=== PATIENT | female | born 1985 ===

== ENCOUNTER 2017-10-28 22:19 | Inpatient (IN) | payer BC ==
[2017-10-28] MEDS ORDERED: Ondansetron 4 MG/2 ML SDV IVPUSH PRN (23:08)
[2017-10-28] MEDS ORDERED: Sodium Chloride 0.9% 10 ML Syringe FLUSH PRN (23:08)
[2017-10-28] MEDS ORDERED: Nalbuphine 20 MG/1 ML Amp IVPUSH PRN (23:08)
[2017-10-28] MEDS ORDERED: Oxytocin/Lactated Ringers 10 UNIT/1,000 ML BAG IV SCH (23:15)
[2017-10-29] MEDS ORDERED: Ondansetron 4 MG/2 ML SDV IVPUSH PRN (01:57)
[2017-10-29] MEDS ORDERED: ePHEDrine 50 MG/ML SDV IVPUSH PRN (01:57)
[2017-10-29] MEDS ORDERED: fentaNYL 100 MCG/2 ML SDV EPIDUR PRN (01:57)
[2017-10-29] MEDS ORDERED: Bupivacaine/fentaNYL/NS 100 ML Bag EPIDUR SCH (02:00)
--- NOTE | 2017-10-29 02:01 | PCM.PREANE ---
Preanesthetic Assessment - Anesthesia/Transfusion/Family Hx Anesthesia History: Prior Anesthesia Without Reaction (only epidurals) Family History of Anesthesia Reaction: No Transfusion History: No Prior Transfusion(s) Intubation History: Unknown - Review of Systems General: No Symptoms Pulmonary: No Symptoms Cardiovascular: No Symptoms (PIH), Lightheadedness Gastrointestinal: No Symptoms Neurological: No Symptoms Other: Reports: None - Physical Assessment NPO Status Date: 10/28/17 NPO Status Time: 18:00 Pulse: 86 O2 Sat by Pulse Oximetry: 99 Respiratory Rate: 18 Blood Pressure: 148/85 Temperature: 37 C Vital Signs: Last Vital Signs Temp 37.0 C 10/28/17 23:08 Pulse 86 10/28/17 23:08 Resp 18 10/28/17 23:08 BP 148/85 H 10/28/17 23:08 Pulse Ox Height: 1.7 m Weight: 71.123 kg ASA Class: 2 Mental Status: Alert & Oriented x3 Airway Class: Mallampati = 2 Dentition: Reports: Normal Dentition (permanent bottom retainer noted), Caries Thyro-Mental Finger Breadths: 3 Mouth Opening Finger Breadths: 3 ROM/Head Extension: Full Lungs: Clear to Auscultation, Normal Respiratory Effort Cardiovascular: Regular Rate, Regular Rhythm - Lab Values: Laboratory Last Values WBC 11.61 K/mm3 (3.98-10.04) H 10/28/17 23:25 RBC 4.21 M/mm3 (3.98-5.22) 10/28/17 23:25 Hgb 12.8 gm/L (11.2-15.7) 10/28/17 23:25 Hct 37.0 % (34.1-44.9) 10/28/17 23:25 MCV 87.9 fl (79.4-94.8) 10/28/17 23:25 MCH 30.4 pg (25.6-32.2) 10/28/17 23:25 MCHC 34.6 g/dl (32.2-35.5) 10/28/17 23:25 RDW Std Deviation 40.9 fL (36.4-46.3) 10/28/17 23:25 Plt Count 202 K/mm3 (182-369) 10/28/17 23:25 MPV 10.1 fl (9.4-12.3) 10/28/17 23:25 Neut % (Auto) 67.2 % (34.0-71.1) 10/28/17 23:25 Lymph % (Auto) 22.0 % (19.3-51.7) 10/28/17 23:25 [place] % (Auto) 9.4 % (4.7-12.5) 10/28/17 23:25 Eos % (Auto) 0.8 (0.7-5.8) 10/28/17 23:25 Baso % (Auto) 0.3 % (0.1-1.2) 10/28/17 23:25 Neut # (Auto) 7.80 K/mm3 (1.56-6.13) H 10/28/17 23:25 Lymph # (Auto) 2.56 K/mm3 (1.18-3.74) 10/28/17 23:25 [place] # (Auto) 1.09 K/mm3 (0.24-0.36) H 10/28/17 23:25 Eos # (Auto) 0.09 K/mm3 (0.04-0.36) 10/28/17 23:25 Baso # (Auto) 0.03 K/mm3 (0.01-0.08) 10/28/17 23:25 BUN 6 mg/dL (7-18) L 10/28/17 23:25 Creatinine 0.6 mg/dL (0.55-1.02) 10/28/17 23:25 Est Cr Clr Drug Dosing 132.11 mL/min 10/28/17 23:25 Estimated GFR (MDRD) > 60 mL/min (>60) 10/28/17 23:25 Uric Acid 3.3 mg/dL (2.6-6.0) 10/28/17 23:25 AST 14 U/L (15-37) L 10/28/17 23:25 ALT 14 U/L (14-59) 10/28/17 23:25 Lactate Dehydrogenase 159 U/L (81-234) 10/28/17 23:25 Urine Color Yellow (Yellow) 10/29/17 01:00 Urine Appearance Clear (Clear) 10/29/17 01:00 Urine pH 6.0 (5.0-8.0) 10/29/17 01:00 Ur Specific [place] 1.015 (1.005-1.030) 10/29/17 01:00 Urine Protein Negative (Negative) 10/29/17 01:00 Urine Glucose (UA) Negative (Negative) 10/29/17 01:00 Urine Ketones 1+ (Negative) H 10/29/17 01:00 Urine Occult Blood Negative (Negative) 10/29/17 01:00 Urine Nitrite Negative (Negative) 10/29/17 01:00 Urine Bilirubin Negative (Negative) 10/29/17 01:00 Urine Urobilinogen 0.2 (0.2-1.0) 10/29/17 01:00 Ur Leukocyte Esterase Negative (Negative) 10/29/17 01:00 Above labs reviewed and noted and within acceptable ranges to proceed with epidural. - Allergies Allergies/Adverse Reactions: Allergies Allergy/AdvReac Type Severity Reaction Status Date / Time ceftriaxone sodium Allergy Difficulty Verified 10/27/14 02:32 [From Rocephin] Breathing gluten Allergy Abdominal Verified 10/29/17 01:32 Pain venom-honey bee Allergy Difficulty Verified 10/27/14 02:32 [bee venom (honey bee)] Breathing - Anesthesia Plan Pre-Op Medication Ordered: None - Acknowledgements Anesthesia Type Planned: Epidural Pt an Appropriate Candidate for the Planned Anesthesia: Yes Alternatives and Risks of Anesthesia Discussed w Pt/Guardian: Yes Pt/Guardian Understands and Agrees with Anesthesia Plan: Yes PreAnesthesia Questionnaire - Past Health History Medical/Surgical History: Denies Medical/Surgical History HEENT History: Reports: Impaired Vision Other HEENT History: wears contacts 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: Hematologic History: Reports: Anemia Other Hematologic History: induced - SUBSTANCE USE Smoking Status *Q: Never Smoker Second Hand Smoke Exposure: No Days Per Week of Alcohol Use: 0 Recreational Drug Use History: No - HOME MEDS Home Medications: Home Meds EPINEPHrine [Epipen 2-Kwasi] 0.3 mg IM ASDIRECTED PRN 10/27/14 [History] PNV95/Ferrous Fumarate/FA [ Tablet] 1 each PO DAILY 10/27/14 [History] Ferrous Sulfate [Slow Fe] 1 tab PO DAILY 10/29/17 [History] - CURRENT (IN HOUSE) MEDS Current Meds: Current Medications Ephedrine Sulfate (Ephedrine Sulfate) 5 mg IVPUSH ASDIRECTED PRN PRN Reason: Hypotension Fentanyl/Bupivacaine HCl (Fentanyl/Bupivacaine/Ns 2 Mcg-0.125% 100 Ml) 100 ml EPIDUR ASDIRECTED MARCEL Lactated Ringer's (Ringers, Lactated) 1,000 mls @ 100 mls/hr IV ASDIRECTED MARCEL Oxytocin/Lactated Ringer's (Pitocin In Lr 10 Units/1,000 Ml) 10 unit in 1,000 mls @ 500 mls/hr IV ASDIRECTED MARCEL Nalbuphine HCl (Nubain) 10 mg IVPUSH Q2H PRN PRN Reason: Pain (moderate 4-6) Ondansetron HCl (Zofran) 4 mg IVPUSH Q4H PRN PRN Reason: Nausea/Vomiting Sodium Chloride (Saline Flush) 10 ml FLUSH ASDIRECTED PRN PRN Reason: Keep Vein Open
[2017-10-29] MEDS: Lactated Ringers 1,000 ML IV SCH ×3 (02:38→07:34)
[2017-10-29] MEDS ORDERED: Bupivacaine 0.25% 10 ML SDV ONE (03:00)
--- NOTE | 2017-10-29 05:54 | PCM.LDHP ---
L&D History of Present Illness - General Date of Service: 10/29/17 Admit Problem/Dx: Patient Status Order with Admit Dx/Problem 10/28/17 23:08 Patient Status [ADT] Routine Admission Diagnosis/Problem Admission Diagnosis/Problem Normal labor 10/29/17 05:53 39 2/7 week IUP in active labor with cervical change. 10/29/17 06:26 Source of Information: Patient History Limitations: Reports: No Limitations - History of Present Illness Introduction:: History present illness: Prashant is a 32-year-old 4 para 3003 white female who is admitted to labor and delivery on 10/29/2017 in active labor. She did change from 2 cm in clinic to 5 cm with bulging bag of morrison. TELLO is 2017 as determined by a certain last missed period starting 01/27/2017 and supported by at least 1 ultrasound done 04/12/2017. She started labor at approximately 2300 hrs. on 10/28/2017 continued to progress steadily. Upon arrival in labor and delivery her blood pressures were borderline mildly increased. Preeclampsia labs were performed and were negative. She maintained high normal blood pressures throughout the labor and these decreased somewhat after epidural. Epidural was placed for laboring analgesia. 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 Patient's first visit was at 10-5/7 weeks gestational age on 04/12/2017. She had regular care throughout the . Her weight gain was from a pregravid weight of 127.4 pounds to a weight of 154 pounds for a 27 pound weight gain. Her vital signs are stable throughout the course. Last visit in clinic her blood pressure 138/83-high normal. The patient had an abnormal glucose tolerance test. Her three-hour gtt. however was within normal limits. She had a group B strep-negative test on 10/01/2017. She is MTHFR dictation positive. Also noted to have a vitamin D deficiency. She has taken vitamins throughout the course and has taken extra methyl folate 400 g per day. Allergic to bee stings and therefore carries an EpiPen. Her previous deliveries have included the followin. Female born 01/22/2007 at term, 7 lbs. 7 oz., , child's name is Louis 2. Male born 10/06/2009 at term, 7 lbs. 6 oz., , child's name is Arely 3. Male infant born 06[birth year]02/2012 at term, 7 lbs. 8 oz., , child's name is Sary laboratory testing shows blood to b B+, negative antibody screen. First laboratory testing showed a hemoglobin of 14.3 g/dL. Platelets were 248,000. She is rubella immune. RPR is nonreactive. Urine culture was negative. Hepatitis B surface antigen and HIV assays were both negative. Second trimester testing showed a hemoglobin of 10.9 g/dL. Platelets were 186,000. One- hour GTT was 154. Three-hour glucose tolerance test was normal with values fasting at 87, 1 hour at 141, 2 hour at 111, 3 hour at 86. Allergies: 1. Rocephin which causes shortness of breath 2. Bee stings causes anaphylaxis Medications: 1. vitamins daily 2. Methyl folate 400 g daily 3. EpiPen when necessary Past medical history: 1. 3 2. Allergies to bee stings Past surgical history: Unremarkable Family history; patient has 2 sons alive and well, 1 daughter alive and well. One sister age 34 alive with some undiagnosed health problems question of uterine bleeding abnormality. One brother age 36 alive and well. Mother age 57 alive and well. Father age 59 alive with hyperlipidemia. Maternal grandmother at age 89 with age-related problems. Maternal grandfather at age 57 uncertain cause but did have diabetes. Paternal grandmother living at age 87, healthy. Paternal grandfather around age 61 from an OR. No bleeding, blood clotting, anesthesia problems noted in the family. 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 She does not use any significant amounts of alcohol, drugs or tobacco. Review of systems: In general patient is a well-developed well-nourished pleasant female in moderate distress secondary to contract Skin is negative Cardiovascular-no chest pain or exercise intolerance Respiratory-no shortness of breath or infectious symptoms Breasts-changes associated with . Patient plans to breast-feed GI-negative -changes associated with with increased fundal height Musculoskeletal-negative Neurological-negative Physical exam: In general patient is a well-developed pleasant female who is alert and oriented 3. Last clinic blood pressure was 138/83, weight 154.4, heart rate 141. Pre weight was 127.4 pounds. Height is 5 feet 7. Body mass index pre was 19.1. Skin Is warm and dry without lesions HEENT, neck and back within normal limits Lungs are clear with good breath sounds in all lung herrera. Cardiovascular exam shows regular rate and rhythm without murmurs. Breasts not evaluated having been evaluated visit and found to be normal Abdomen is protuberant with fundal height consistent with term baby in vertex presentation Extremities and neurological exam within normal limits Pain Score: 7 - Related Data Allergies/Adverse Reactions: Allergies Allergy/AdvReac Type Severity Reaction Status Date / Time ceftriaxone sodium Allergy Difficulty Verified 10/27/14 02:32 [From Rocephin] Breathing gluten Allergy Abdominal Verified 10/29/17 01:32 Pain venom-honey bee Allergy Difficulty Verified 10/27/14 02:32 [bee venom (honey bee)] Breathing Home Medications: Home Meds EPINEPHrine [Epipen 2-Kwasi] 0.3 mg IM ASDIRECTED PRN 10/27/14 [History] PNV95/Ferrous Fumarate/FA [ Tablet] 1 each PO DAILY 10/27/14 [History] Ferrous Sulfate [Slow Fe] 1 tab PO DAILY 10/29/17 [History] Past Medical History - Past Health History Medical/Surgical History: Denies Medical/Surgical History HEENT History: Reports: Impaired Vision Other HEENT History: wears contacts 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: Hematologic History: Reports: Anemia Other Hematologic History: induced Social & Family History - Family History Family Medical History: Noncontributory - Tobacco Use Smoking Status *Q: Never Smoker Second Hand Smoke Exposure: No - Alcohol Use Days Per Week of Alcohol Use: 0 - Recreational Drug Use Recreational Drug Use: No H&P Review of Systems - Review of Systems: Review Of Systems: See Below L&D Exam - Exam Exam: See Below - Vital Signs Vital Signs: Last Vital Signs Temp 37 C 10/29/17 03:15 Pulse 86 10/29/17 03:15 Resp 18 10/29/17 03:15 BP 148/85 H 10/29/17 03:15 Pulse Ox 99 10/29/17 03:15 Weight: 71.123 kg - Patient Data Lab Results Last 24 hrs: Laboratory Results - last 24 hr 10/28/17 10/28/17 10/29/17 Range/Units 23:25 23:25 01:00 WBC 11.61 H (3.98-10.04) K/mm3 RBC 4.21 (3.98-5.22) M/mm3 Hgb 12.8 (11.2-15.7) gm/L Hct 37.0 (34.1-44.9) % MCV 87.9 (79.4-94.8) fl MCH 30.4 (25.6-32.2) pg MCHC 34.6 (32.2-35.5) g/dl RDW Std Deviation 40.9 (36.4-46.3) fL Plt Count 202 (182-369) K/mm3 MPV 10.1 (9.4-12.3) fl Neut % (Auto) 67.2 (34.0-71.1) % Lymph % (Auto) 22.0 (19.3-51.7) % [place] % (Auto) 9.4 (4.7-12.5) % Eos % (Auto) 0.8 (0.7-5.8) Baso % (Auto) 0.3 (0.1-1.2) % Neut # (Auto) 7.80 H (1.56-6.13) K/mm3 Lymph # (Auto) 2.56 (1.18-3.74) K/mm3 [place] # (Auto) 1.09 H (0.24-0.36) K/mm3 Eos # (Auto) 0.09 (0.04-0.36) K/mm3 Baso # (Auto) 0.03 (0.01-0.08) K/mm3 BUN 6 L (7-18) mg/dL Creatinine 0.6 (0.55-1.02) mg/dL Est Cr Clr Drug Dosing 132.11 mL/min Estimated GFR (MDRD) > 60 (>60) mL/min Uric Acid 3.3 (2.6-6.0) mg/dL AST 14 L (15-37) U/L ALT 14 (14-59) U/L Lactate Dehydrogenase 159 (81-234) U/L Urine Color Yellow (Yellow) Urine Appearance Clear (Clear) Urine pH 6.0 (5.0-8.0) Ur Specific [place] 1.015 (1.005-1.030) Urine Protein Negative (Negative) Urine Glucose (UA) Negative (Negative) Urine Ketones 1+ H (Negative) Urine Occult Blood Negative (Negative) Urine Nitrite Negative (Negative) Urine Bilirubin Negative (Negative) Urine Urobilinogen 0.2 (0.2-1.0) Ur Leukocyte Esterase Negative (Negative) Result Diagrams: 10/28/17 23:25 10/28/17 23:25 Problem List Initiated/Reviewed/Updated: Yes Orders Last 24hrs: Active Orders 24 hr Category Date Time Status Patient Status [ADT] Routine ADT 10/28/17 23:08 Active Activity as Tolerated [RC] PFP Care 10/28/17 23:08 Active Communication Order [RC] ASDIRECTED Care 10/28/17 23:08 Active Notify Provider [RC] ASDIRECTED Care 10/29/17 01:57 Active Notify Provider [RC] PFP Care 10/28/17 23:08 Active Notify Provider [RC] PRN Care 10/28/17 23:08 Active Oxygen Therapy [RC] ASDIRECTED Care 10/29/17 01:56 Active Peripheral IV Care [RC] . DIRECTED Care 10/28/17 23:08 Active Pulse Oximetry [RC] ASDIRECTED Care 10/29/17 01:57 Active Pump Management, Intrathecal [RC] ASDIRECTED Care 10/28/17 23:09 Active Urinary Catheter Assessment [RC] ASDIRECTED Care 10/28/17 23:08 Active Vital Signs [RC] 09,15,21,03 Care 10/28/17 23:08 Active Regular Diet [DIET] Diet 10/28/17 Breakfast Active UA W/O MICROSCOPIC [URIN] Stat Lab 10/29/17 01:00 Ordered Bupivacaine/fentaNYL/NS [fentaNYL/Bupivacaine/NS 2 MCG- Med 10/29/17 02:00 Active 0.125% 100 ML] 100 ml EPIDUR ASDIRECTED Lactated Ringers [Ringers, Lactated] 1,000 ml Med 10/28/17 23:15 Active IV ASDIRECTED Nalbuphine [Nubain] Med 10/28/17 23:08 Active 10 mg IVPUSH Q2H PRN Ondansetron [Zofran] Med 10/29/17 01:57 Active 4 mg IVPUSH ONETIME PRN Ondansetron [Zofran] Med 10/28/17 23:08 Active 4 mg IVPUSH Q4H PRN Oxytocin/Lactated Ringers [Pitocin in LR 10 Units/1,000 Med 10/28/17 23:15 Active ML] 10 unit in 1,000 ml IV ASDIRECTED Sodium Chloride 0.9% [Saline Flush] Med 10/28/17 23:08 Active 10 ml FLUSH ASDIRECTED PRN ePHEDrine [ePHEDrine Sulfate] Med 10/29/17 01:57 Active 5 mg IVPUSH ASDIRECTED PRN fentaNYL [Sublimaze] Med 10/29/17 01:57 Active 100 mcg EPIDUR Q3H PRN Electronic Heart Tones Ext w TOCO [WOMSER] Oth 10/28/17 23:08 Ordered Routine Electronic Heart Tones Internal [WOMSER] Per Unit Oth 10/28/17 23:08 Ordered Routine PIH Panel [OM.PC] Stat Oth 10/28/17 23:08 Ordered Peripheral IV Insertion Adult [OM.PC] Routine Oth 10/28/17 23:08 Ordered Resuscitation Status Routine Resus Stat 10/28/17 23:08 Ordered Medication Orders Ephedrine Sulfate (Ephedrine Sulfate) 5 mg IVPUSH ASDIRECTED PRN PRN Reason: Hypotension Fentanyl (Sublimaze) 100 mcg EPIDUR Q3H PRN PRN Reason: Pain Last Admin: 10/29/17 03:16 Dose: 100 mcg Fentanyl/Bupivacaine HCl (Fentanyl/Bupivacaine/Ns 2 Mcg-0.125% 100 Ml) 100 ml EPIDUR ASDIRECTED MARCEL Last Admin: 10/29/17 03:16 Dose: 100 ml Lactated Ringer's (Ringers, Lactated) 1,000 mls @ 100 mls/hr IV ASDIRECTED MARCEL Last Admin: 10/29/17 02:39 Dose: 100 mls/hr Infusion: 10/29/17 02:39 Dose: 100 mls/hr Admin: 10/29/17 02:38 Dose: 100 mls/hr Oxytocin/Lactated Ringer's (Pitocin In Lr 10 Units/1,000 Ml) 10 unit in 1,000 mls @ 500 mls/hr IV ASDIRECTED MARCEL Nalbuphine HCl (Nubain) 10 mg IVPUSH Q2H PRN PRN Reason: Pain (moderate 4-6) Ondansetron HCl (Zofran) 4 mg IVPUSH Q4H PRN PRN Reason: Nausea/Vomiting Ondansetron HCl (Zofran) 4 mg IVPUSH ONETIME PRN PRN Reason: Nausea/Vomiting Sodium Chloride (Saline Flush) 10 ml FLUSH ASDIRECTED PRN PRN Reason: Keep Vein Open Assessment/Plan Comment:: Assessment: 1. 39-2/7 week intrauterine , active labor 2. Borderline high normal blood pressures with no laboratory evidence of preeclampsia 3. Rubella immune 4. Plans to breast-feed 5. Epidural for labor and analgesia Plan: 1. Anticipate 2. Epidural for pain control 3. Support breast-feeding decision 4. CBC
[2017-10-29] MEDS ORDERED: EPINEPHRINE 0.3 MG/0.3 ML IM PRN (06:47)
--- NOTE | 2017-10-29 06:53 | PCM.SN ---
- Free Text/Narrative Note: Delivery note: Prashant is a 32-year-old 4 now para 4004 white female with an TELLO of 11/03/2017 who arrived in labor and delivery late on the evening of 2017 in active labor. She progressed to 5 cm and then on to complete in a relatively rapid fashion. She had an epidural for labor analgesia. Heart tones were within normal limits. Pressures were initially high normal but preeclampsia labs returned normal. With epidural her blood pressures normalized. She progressed to complete at approximately 0530 hrs. and her membranes revealed a very light meconium-stained amniotic fluid. She pushed with 1 contraction delivered a viable, coughlin, 3570 g (7 pound 13.9 ounce) male infant in a left occiput anterior position, with Apgars of 8 and 9 and a length of 22.5 inches at 0610 hrs. Baby was placed on was abdomen and nose mouth were bulb suctioned. Cord was clamped 2 and then was cut by the baby's father Julian. Cord blood was obtained. Baby was taken to the warmer and evaluated. Pitocin was administered IV to facilitate an increase in uterine tone and use likelihood of bleeding. The placenta delivered at 0612 hrs.in a [place] fashion, appeared intact and complete and was discarded per patient desire. Patient's bleeding was minimal with no more than 100 mL of blood loss. Patient plans to breast-feed. Condition : Good
[2017-10-29] MEDS ORDERED: Lanolin 100% Cream 7 GM Tube TOP PRN (07:33)
[2017-10-29] MEDS ORDERED: Benzocaine/Menthol 20%-0.5% Spray 56 GM Canister TOP PRN (07:33)
[2017-10-29] MEDS ORDERED: Acetaminophen 325 MG Tab PO PRN (07:33)
[2017-10-29] MEDS ORDERED: Docusate Sodium 100 MG Cap PO PRN (07:33)
[2017-10-29] MEDS ORDERED: Witch Hazel Medicated Pads 100/Jar TOP PRN (07:46)
[2017-10-29] MEDS: Ibuprofen 600 MG Tab PO PRN ×4 (08:12→22:04)
[2017-10-29] MEDS ORDERED: Prenatal Multivitamin with Calcium/Folic Acid/Iron Tab PO SCH (09:00)
[2017-10-29] MEDS ORDERED: Ferrous Sulfate 140 MG Tab PO SCH (09:00)
[2017-10-30] MEDS: Ibuprofen 600 MG Tab PO PRN ×4 (03:07→21:05)
[2017-10-30] MEDS ORDERED: Sodium Chloride 0.9% 10 ML Syringe FLUSH PRN (05:29)
[2017-10-30] MEDS ORDERED: Magnesium Sulfate/Water 2 GM in Premix Bag 1 BAG IV ONE ×2 (05:37→05:47)
[2017-10-30] MEDS ORDERED: Magnesium Sulfate/Water 40 GM/1,000 ML BAG IV SCH (05:45)
--- NOTE | 2017-10-30 06:17 | PCM.SN ---
- Free Text/Narrative Note: day one: I was called this a.m. at 0500 hrs. for patient's symptoms of shakiness, feeling unwell. Also some chest heaviness, left arm discomfort. This was acute onset at approximately 4:00 this morning. Nurse had seen the patient and found her reflexes to be increased, patient somewhat anxious. On clinical evaluation patient is somewhat anxious in appearance, concerned about what may be going on The shakiness had resolveby the time I saw her. No shortness of breath or chest pain at that time either. She's been ambulating well, voiding well, has had minimal lochia. No discomforts otherwise noted. Nursing is going well. Clinical evaluation shows blood pressures normalize from the time of delivery and through the night until approximately 4:00 at which time blood pressures 140 /90 and short time later 151/94. O2 sats on room air were 100% at the time of of those evaluations. In general the patient appeared somewhat anxious and concerned but not in any acute distress otherwise. HEENT, neck and back within normal limits Cardiovascular exam showed a rate of approximately 100 but was regular and without significant murmurs Lungs are clear with good breath sounds in all lung herrera. Breasts exam deferred. Abdomen showed positive bowel sounds, soft, nontender, uterus approximately 3 finger breaths below the umbilicus and was nontender. Lower extremities showed no significant edema. Neurological evaluation showed deep tendon reflexes +3/4 with some extra beats of clonus in bilateral lower extremities and +3/4 bilaterally in upper extremities. Laboratory testing shows hemoglobin of 11.6, hematocrit 34.4, white blood count 10.3 and platelets of 173,000. (Platelets down from 202,000) Chemistry profile shows a CO2 of 26. Her sodium is 137 potassium is 4.2. AST is normal at 29 but increased from 14 yesterday. ALTs is normal. Uric acid is increased from 3.3-3.6 which is still within normal limits. Chest x-rayPAs within normal limits. EKG shows no acute ischemia mild repolarization early in the anterior leads, no acute STT wave changes, normal sinus rhythm. Assessment: 1. Postoperative day 1 with relatively rapid onset of chest discomfort/heaviness , questionable shortness of breath, increased anxiety, shakiness and left arm discomfort. Etiology uncertain. Deep tendon reflexes are very brisk with clonus noted in the lower extremities. Must consider preeclampsia symptomatology. Blood pressures are borderline at this time having normalized after delivery. 2. Minimal bleeding, nursing going well and ambulating well. Plan: 1. Monitor closely clinically. We'll do intake and outputs, U4 hour vital signs with deep tendon reflexes 2. Initiate magnesium sulfate with a 4 g bolus of magnesium sulfate over the minutes followed by 2 g per hour maintenance dosage. Medication, risks, benefits , alternatives discussed with patient. She agrees to proceed with therapy. 3. Monitor magnesium levels every 6 hours. We'll maintain a pulse between 4 and 6. 4. Patient to continue breast-feeding.
--- NOTE | 2017-10-30 11:04 | PCM48HPAN ---
Post Anesthesia Note - EVALUATION WITHIN 48HRS OF ANESTHETIC Vital Signs in Normal Range: Yes Patient Participated in Evaluation: Yes Respiratory Function Stable: Yes Airway Patent: Yes Cardiovascular Function Stable: Yes Hydration Status Stable: Yes Pain Control Satisfactory: Yes Nausea and Vomiting Control Satisfactory: Yes Mental Status Recovered: Yes Pulse Rate: 103 Resp Rate: 14 Temperature: 98.1 F Blood Pressure: 149/87
[2017-10-31] MEDS: Ibuprofen 600 MG Tab PO PRN (04:58)
--- NOTE | 2017-10-31 06:49 | PCM.DCSUM1 ---
Discharge Summary - Hospital Course Free Text/Narrative:: Prashant is a 32-year-old 4 now para 4004 white female with an TELLO of 2017 who arrived in labor and delivery late on the evening of 10/28/2017 in active labor. She progressed to 5 cm and then on to complete in a relatively rapid fashion. She had an epidural for labor analgesia. Heart tones were within normal limits. Pressures were initially high normal but preeclampsia labs returned normal. With epidural her blood pressures normalized. She progressed to complete at approximately 0530 hrs. and her membranes revealed a very light meconium-stained amniotic fluid. She pushed with 1 contraction delivered a viable, coughlin, 3570 g (7 pound 13.9 ounce) male in a left occiput anterior position, with Apgars of 8 and 9 and a length of 22.5 inches at 0610 hrs. Baby was placed on was abdomen and nose mouth were bulb suctioned. Cord was clamped 2 and then was cut by the baby's father Julian. Cord blood was obtained. Baby was taken to the warmer and evaluated. Pitocin was administered IV to facilitate an increase in uterine tone and use likelihood of bleeding. The placenta delivered at 0612 hrs.in a Coats fashion, appeared intact and complete and was discarded per patient desire. Patient's bleeding was minimal with no more than 100 mL of blood loss. Patient plans to breast-feed. - Discharge Data Discharge Date: 10/31/17 Discharge Disposition: Home, Self-Care 01 Condition: Good - Patient Instructions Diet: Regular Diet as Tolerated (Nursing diet with increase calories and calcium as recommended) Activity: As Tolerated (No intercourse or tampons until bleeding resolves) Driving: Do Not Drive (For at least 2 days) Showering/Bathing: May Shower (May take a bath) Notify Provider of: Fever, Increased Pain, Swelling and Redness, Nausea and/or Vomiting Other/Special Instructions: Patient was advised as to preeclampsia symptoms and asked to call if any worsening of symptoms occurs. - Discharge Plan Home Medications: Home Meds EPINEPHrine [Epipen 2-Kwasi] 0.3 mg IM ASDIRECTED PRN 10/27/14 [History] PNV95/Ferrous Fumarate/FA [ Tablet] 1 each PO DAILY 10/27/14 [History] Ferrous Sulfate [Slow Fe] 1 tab PO DAILY 10/29/17 [History] Acetaminophen [Tylenol] 650 mg PO Q4H PRN tablet 10/31/17 [Rx] Ibuprofen [IJD: Ibuprofen] 600 mg PO Q4H PRN tablet 10/31/17 [Rx] Referrals: Kadeem Pardo MD [Primary Care Provider] - (Return to [facility] within the next week for follow-up of blood pressure elevation and preeclampsia. ) - Discharge Summary/Plan Comment DC Time >30 min.: No Discharge Summary/Plan Comment: Discharge instructions: 1. Discharge home 2. Diet, activity and follow-up discussed with patient. Recommend nursing diet with increased calories and calcium. 3. Precautions given concern increased pain, bleeding, temperature, signs/ symptoms of DVT/PE. 4. Medications per home medication was printed, discussed with and given to the patient. 5. Return to clinic-Dr. Pardo[facility] within 1 week. Diagnosis: 1. Term -delivered 2. Preeclampsia-clinically symptomatic after delivery Condition: Good - Patient Data Vitals - Most Recent: Last Vital Signs Temp 36.8 C 10/31/17 03:32 Pulse 92 10/31/17 03:32 Resp 16 10/31/17 03:32 BP 134/85 10/31/17 03:32 Pulse Ox 98 10/31/17 03:32 Weight - Most Recent: 71.123 kg I&O - Last 24 hours: Intake & Output 10/30/17 10/30/17 10/31/17 14:59 22:59 06:59 Intake Total 990 1875 1274 Output Total 1800 2550 1400 Balance -810 -675 -126 Lab Results - Last 24 hrs: Laboratory Results - last 24 hr 10/30/17 10/30/17 10/30/17 Range/Units 12:10 18:00 23:45 Magnesium 5.0 H 6.2 H 5.0 H (1.8-2.4) mg/dl Med Orders - Current: Current Medications Acetaminophen (Tylenol) 650 mg PO Q4H PRN PRN Reason: mild pain or fever Benzocaine/Menthol (Dermoplast Pain Relief [place]) 0 gm TOP ASDIRECTED PRN PRN Reason: Perineal Comfort Measure Last Admin: 10/29/17 08:12 Dose: 1 canister Docusate Sodium (Colace) 100 mg PO BID PRN PRN Reason: Constipation Emollient Ointment (Lansinoh Hpa) 0 gm TOP ASDIRECTED PRN PRN Reason: Sore Nipples Ibuprofen (Motrin) 600 mg PO Q4H PRN PRN Reason: Mild pain or fever Last Admin: 10/31/17 04:58 Dose: 600 mg Sodium Chloride (Saline Flush) 10 ml FLUSH ASDIRECTED PRN PRN Reason: Keep Vein Open Witch Teresa (Tucks) 1 pad TOP ASDIRECTED PRN PRN Reason: Perineal Comfort Measure Last Admin: 10/29/17 08:12 Dose: 1 jar Discontinued Medications Bupivacaine HCl (Sensorcaine-Mpf 0.25%) 10 ml .ROUTE .STK-MED ONE Stop: 10/29/17 03:01 Ephedrine Sulfate (Ephedrine Sulfate) 5 mg IVPUSH ASDIRECTED PRN PRN Reason: Hypotension Epinephrine HCl (Epipen) 0.3 mg IM ASDIRECTED PRN PRN Reason: Allergies Fentanyl (Sublimaze) 100 mcg EPIDUR Q3H PRN PRN Reason: Pain Last Admin: 10/29/17 03:16 Dose: 100 mcg Fentanyl/Bupivacaine HCl (Fentanyl/Bupivacaine/Ns 2 Mcg-0.125% 100 Ml) 100 ml EPIDUR ASDIRECTED [facility] Last Admin: 10/29/17 03:16 Dose: 100 ml Ferrous Sulfate (Slow Fe) 140 mg PO DAILY [facility] Lactated Ringer's (Ringers, Lactated) 1,000 mls @ 100 mls/hr IV ASDIRECTED [facility] Last Admin: 10/29/17 07:34 Dose: 100 mls/hr Oxytocin/Lactated Ringer's (Pitocin In Lr 10 Units/1,000 Ml) 10 unit in 1,000 mls @ 500 mls/hr IV ASDIRECTED [facility] Last Admin: 10/29/17 07:37 Dose: 500 mls/hr Magnesium Sulfate 2 gm/ Premix 50 mls @ 300 mls/hr IV ONETIME ONE Stop: 10/30/17 05:46 Last Admin: 10/30/17 06:08 Dose: 300 mls/hr Magnesium Sulfate 2 gm/ Premix 50 mls @ 300 mls/hr IV ONETIME ONE Stop: 10/30/17 05:56 Last Admin: 10/30/17 06:15 Dose: 300 mls/hr Magnesium Sulfate (Magnesium Sulfate 40 Gm In Water 1000 Ml) 40 gm in 1,000 mls @ 50 mls/hr IV ASDIRECTED [facility] Last Infusion: 10/30/17 19:55 Dose: 25 mls/hr Nalbuphine HCl (Nubain) 10 mg IVPUSH Q2H PRN PRN Reason: Pain (moderate 4-6) Ondansetron HCl (Zofran) 4 mg IVPUSH Q4H PRN PRN Reason: Nausea/Vomiting Ondansetron HCl (Zofran) 4 mg IVPUSH ONETIME PRN PRN Reason: Nausea/Vomiting Prenat Multivit/Binding Bench Worker/Iron/Folic Ac ( Plus Iron) 1 each PO DAILY [facility] Sodium Chloride (Saline Flush) 10 ml FLUSH ASDIRECTED PRN PRN Reason: Keep Vein Open
--- NOTE | 2017-10-31 07:56 | CR ---
Chest: Portable view of the chest was obtained. Comparison: No prior chest x-ray. Heart size and mediastinum are normal. Lungs are clear. No pneumothorax is seen. Bony structures appear within normal limits for the patient's age. Impression: 1. Nothing acute is seen on portable chest x-ray. Diagnostic code #1
[2017-10-31 13:44] VITALS: BP 124/82
== END 2017-10-31 12:10 | disposition home or self-care (01) | DRG 560 ==
LOC: JD.OBCHECK 22:19 → JD.OB 22:21 → JD.OBCHECK 23:08 → JD.OB 23:16 → OBSVTOIN 10-29 06:10 → JD.OB 10-29 06:11
PROVIDERS: ADMIT Obstetrics & Gynecology; ATTEND Obstetrics & Gynecology
PROC: 10E0XZZ Delivery of Products of Conception, External Approach (ICD-10-PCS; principal; 2017-10-29)
PROC: 6A550ZT Pheresis of Cord Blood Stem Cells, Single (ICD-10-PCS; 2017-10-29)
PROC: 00HU33Z Insertion of Infusion Device into Spinal Canal, Percutaneous Approach (ICD-10-PCS; 2017-10-29)
PROC: 3E0R3BZ Introduction of Anesthetic Agent into Spinal Canal, Percutaneous Approach (ICD-10-PCS; 2017-10-29)
DX: O77.0 Labor and delivery complicated by meconium in amniotic fluid (principal); Z3A.39 39 weeks gestation of pregnancy; Z37.0 Single live birth; O14.95 Unspecified pre-eclampsia, complicating the puerperium; Z88.4 Allergy status to anesthetic agent; Z91.030 Bee allergy status; Z91.018 Allergy to other foods; Z79.899 Other long term (current) drug therapy
CPT/HCPCS: 36415; 51701; 59025; 59409; 71045; 71045-26; 80053; 81003; 82565; 83615; 83735; 84450; 84460; 84520; 84550; 85025; 85027; 93005; A9270-GY; J2590; J3010; J3475; J7120